=== PATIENT | female | born 1950 | race Caucasian/White ===

== ENCOUNTER 2024-08-22 05:52 | Day surgery (SDC) | payer MEDICARE, OTHER ==
[2024-08-15 10:27] VITALS: BP 132/77
[~2024-08-22] VITALS: Ht 165.1 cm; Wt 84.0 kg
[~2024-08-22 05:52] MED LIST: ADVIL PM CAPLE1 EACH PO; CENTRUM ADULTS1 EAC1 PO; FLUVOXAMINE MA150 MG PO; HYDROCHLOROTH12.5 MG PO; LACTATED RINGER'S 1,000 ML IV SCH; LEVOTHYROXINE150 MCG PO; LIPITOR20 MG; ZESTRIL40 MG PO
[2024-08-22 05:57] VITALS: BP 156/92
[2024-08-22] MEDS ORDERED: LIDOCAINE HCL 1% 5 ML SDV INJ ONE (07:00)
[2024-08-22] MEDS ORDERED: IBLOOD GLUCOSE TEST STRIP 1 EA TEST VI PRN (07:00)
[2024-08-22] MEDS ORDERED: LIDOCAINE HCL 2% 5 ML SDV ONE (07:17)
[2024-08-22] MEDS ORDERED: propofoL 200 MG/20 ML VIAL ONE (07:17)
--- NOTE | 2024-08-22 08:18 | NUR ---
08/22/24 0818 Heike Barber 0805-PATIENT ARRIVED TO PACU ON 2L NC RR EVEN. PATIENT DROWSY REMOVING NASAL CANNULA. PATIENT LAYING LEFT LATERAL ABDOMEN SOFT IVF INFUSING. SR HR 80'S. ENCOURAGED TO PASS GAS. 0810-QUINTIN ROSS REMAINS AT BEDSIDE BP'S 83-87 SYSTOLIC IVF INFUSING. PATIENT AWAKE DENIES ANY PAIN OR DIZZYNESS. 0815- BP INCREASED. DR. JONES AT BEDSIDE RA 95% RR EVEN. IVF INFUSING. REPORTS "CRAMPY" ENCOURAGED TO PASS GAS. PATIENT HAS EYES CLOSED.
[2024-08-22 08:45] VITALS: BP 126/81
--- NOTE | 2024-08-24 07:58 | PATH ---
[facility] [address] [place], [place] [address] Signed SPECIMEN(S): A HEPATIC FLEXURE POLYP SPECIMEN SOURCE: A. HEPATIC FLEXURE POLYP CLINICAL HISTORY: History of serrated adenoma of colon 07/06/2023 FINAL PATHOLOGIC DIAGNOSIS: Colon, hepatic flexure, polypectomy - Tubular adenoma BRP MICROSCOPIC EXAMINATION: Histologic sections of all submitted blocks are examined by light microscopy. These findings, together with the gross examination, support the pathologic diagnosis. GROSS DESCRIPTION: The specimen, labeled and designated "Soderstrom, hepatic flexure polyp," is received in formalin and consists of four valiente soft tissue fragments, ranging from 0.1-0.4 cm. Entirely submitted in (A1). VB (under the direct supervision of a pathologist) The Gross Description was prepared using a voice recognition system. The report was reviewed for accuracy; however, sound-alike word errors, addition and/or deletions may occur. If there is any question about this report, please contact Client Services. ADDITIONAL NOTES: Immunohistochemical and/or in situ hybridization studies if performed in this case included appropriate positive controls that reacted as expected. This test was developed and its performance characteristics determined by [facility]. It has not been cleared or approved by the U.S. Food and Drug Administration. The FDA has determined that such clearance or approval is not necessary. This test is used for clinical purposes. It should not be regarded as investigational or for research. [facility] is certified under the Clinical Laboratory Improvement Amendments of 1988 (CLIA) as qualified to perform high complexity clinical laboratory testing. PATIENT NAME: JONAS BERRY PATHOLOGY DATE OF : 48 REPORT #: [id number] PHYSICIAN: DRAGAN LEVINE PCP: LIZANDRO QUINTANA MD REPORT IS CONFIDENTIAL AND NOT TO BE RELEASED WITHOUT AUTHORIZATION [address] [address] Signed PERFORMING LABORATORY: Technical component was performed by [facility], [address] [place] [id number] (CLIA# [id number]). Professional interpretation was performed by [facility], [address] [place] [id number] (CLIA#: [id number]). Diagnostician: Dwaine Barros MD Pathologist Electronically Signed 08/24/2024 Copies: ~ PATIENT NAME: JONAS BERRY PATHOLOGY DATE OF : 48 REPORT #: [id number] PHYSICIAN: DRAGAN LEVINE PCP: LIZANDRO QUINTANA MD REPORT IS CONFIDENTIAL AND NOT TO BE RELEASED WITHOUT AUTHORIZATION
--- NOTE | 2024-08-24 15:53 | OR ---
[facility] [address], [place] [address] Signed DATE OF OPERATION: 08/22/2024 SURGEON: Michelle Jones MD PREOPERATIVE DIAGNOSIS: History of serrated adenoma, right colon 2023. POSTOPERATIVE DIAGNOSIS: Small sessile polyp, hepatic flexure (excised). PROCEDURE: Total colonoscopy to cecum with cold morcellation polypectomy x1. ANESTHESIA: Intravenous sedation propofol infusion; Boy Champion CRNA. INDICATION: This 74-year-old white woman is a patient of Dr. Torres and had a positive Cologuard test over a year ago. Colonoscopy in 2023 confirmed a serrated adenoma of the right colon. Given the special features of serrated adenoma I have recommended early repeat colonoscopy on the possibility of incomplete excision of the polyp or other polyps that may have been missed. She is currently asymptomatic and has no family history of colon cancer. She understands the risk of colonoscopy including but not limited to bleeding, infection, and perforation and wished to proceed. FINDINGS: The prep was excellent. Complete colonoscopy was undertaken of the cecum with full intubation of the cecum. There was one small sessile polyp of the hepatic flexure. This was excised with cold morcellation technique. Hemoclip was required due to persistent oozing of blood. The remaining colon and rectum was normal. DESCRIPTION OF PROCEDURE: The patient was brought to the endoscopy suite and placed in lateral decubitus position, given intravenous sedation with propofol infusional technique by the city manager. Digital rectal examination showed a surprisingly tight anal sphincter, which had no associated other abnormality. An Olympus video colonoscope was passed in the rectum and manipulated throughout the colon ultimately intubating the cecum itself. The ileocecal valve and appendiceal orifice were normal. The scope was withdrawn. Examination showed no sign of Electronically Signed By: MICHELLE JONES MD 08/24/24 1553 PATIENT NAME: JONAS BERRY OPERATIVE REPORT DATE OF : 48 REPORT #: [id number] PHYSICIAN: MICHELLE JONES MD PCP: LIZANDRO TORRES MD REPORT IS CONFIDENTIAL AND NOT TO BE RELEASED WITHOUT AUTHORIZATION [facility] [address], [place] [address] Signed abnormality until the hepatic flexure where a small sessile polyp was noted. This was excised with cold morcellation technique. Due to persistent somewhat arterial bleeding a hemoclip was applied with good effect. The scope was withdrawn further. There were no other abnormalities of note. Retroflexed view was normal. The scope was removed. The patient was taken to the recovery room in good condition. CONCLUDING DIAGNOSIS: Polyps x1. PLAN: Recommend repeat colonoscopy in 5 to 7 years, so long as the polyp does not represent serrated adenoma. If so, would recommend a sooner reexamination. She will return to the ongoing care of Dr. Torres otherwise. MD ROXY Pearce/AMANDA /[id number] cc: Dr. Torres Copies: ~ Electronically Signed By: MICHELLE JONES MD 08/24/24 1553 PATIENT NAME: JONAS BERRY OPERATIVE REPORT DATE OF : 48 REPORT #: [id number] PHYSICIAN: MICHELLE JONES MD PCP: LIZANDRO TORRES MD REPORT IS CONFIDENTIAL AND NOT TO BE RELEASED WITHOUT AUTHORIZATION
== END 2024-08-22 08:50 | disposition home or self-care (01) ==
LOC: DS 05:52
PROVIDERS: ATTEND Surgery
PROC: 0DBL8ZX Excision of Transverse Colon, Via Natural or Artificial Opening Endoscopic, Diagnostic (ICD-10-PCS; principal; 2024-08-22 07:30)
DX: D12.3 Benign neoplasm of transverse colon (principal); I10 Essential (primary) hypertension; Z88.0 Allergy status to penicillin; Z79.899 Other long term (current) drug therapy
CPT/HCPCS: 00811; J2003; J2704; J7121